=== PATIENT | male | born 1960 | race Caucasian/White ===

== ENCOUNTER 2017-05-23 13:19 | Emergency (ER) | payer MEDICAID ==
[2017-05-23 13:51] VITALS: RESP 16; TEMP 98; O2SAT 99
--- NOTE | 2017-05-23 14:40 | ED PDOC ---
HPI:STROKE - Historian Historian: Patient, Family - Chief Complaint Chief Complaint: Ataxia, other (Dizziness) - Onset Onset: Hours - Timing Timing: Currently Symptomatic, Improved - Context Context: Standing, Walking - Location Locate right:: other (unsteady gait leaning to right side) - Radiation Radiation: None - Severity of pain Pain Scale:: 0 Pain Scale:: 0 - Exacerbated by Exacerbated by:: Walking - Relieved by Relieved by:: Rest - Notes: Notes:: 56 y/o m with PMHx of HTN and tobacco abuse present to ED c/o dizziness since this morning. Patient noticed when he tried to get out of bed that he felt very dizzy. He check his BP at home and was 204/115. Denies CP, palpitations, SOB, headache, acute vision changes, blood in the stools, weakness, vomiting, nausea or difficulty speaking. Patient states he was taking Losartan and another medication he cant recall the name but had to stopped them about 2 days ago because he ran out of meds. Dizziness he reports it as the sensation that he is going to fall but room is not spinning around him. Upon further questioning patient admits having difficulty walking because he is also leaning toward the right side when he tries to walk. <Ernesto Hampton - Last Filed: 05/30/17 14:58> Against Medical Advice - AMA Patient Left Against Medical Advice: The patient declines admission to the hospital and wishes to leave the Emergency Department. This action is against my medical advice. This decision was made with informed refusal. The patient was told that admission to the hospital is necessary. Explanation of the reasons why were discussed. The risks of leaving were explained to the patient and include, but are not limited to, worsening of known or currently unknown conditions, permanent disability and from undiagnosed or untreated conditions. The patient has the capacity to make this informed decision and understands my explanation of the current medical problem and risks of leaving. The patient voluntarily accepts these risks and signed an AMA form documenting our conversation. The patient was given the opportunity to ask questions and reconsider. The patient was encouraged to return to the Emergency Department at any time for further care. <Monica Rice - Last Filed: 06/04/17 14:04> Supervising Attending Note - Supervising Attending Note The Documented history was done by the: Physician Marketing Campaign Analyst, Attending Physician The documented physical exam was done by the: Physician Marketing Campaign Analyst, Attending Physician - Attestation: I have personally seen and examined this patient.: Yes I have fully participated in the care of the patient.: Yes I have reviewed all pertinent clinical information, including history, physical exam and plan: Yes <Monica Rice - Last Filed: 06/04/17 14:04> NIHSS Stroke Scale - Date/Time Evaluation Performed Date Performed: 05/23/17 Time Performed: 14:30 When Was NIHSS Performed: Baseline - How Severe is the Stroke Level of Consciousness: 0=Alert LOC to Questions: 0=Both comments correct LOC to commands: 0=Obeys both correctly Best Gaze: 0=Normal Visual: 0=No visual loss Facial: 0=Normal Motor Arm - Left: 0=No drift Motor Arm - Right: 0=No drift Motor Leg - Left: 0=No drift Motor Leg - Right: 0=No drift Limb Ataxia: 1=Present Upper or Lower (lean to right side when walking) Sensory: 0=Normal Best Language: 0=No aphasia Dysarthia: 0=Normal articulation Extinction & Inattention (Neglect): 0=Normal, no object Score: 1 <Ernesto Hampton - Last Filed: 05/30/17 14:58> - How Severe is the Stroke Severity Of Stroke: 1-4 = Minor Stroke <Monica Rice - Last Filed: 06/04/17 14:04> rTPA Inclusion/Exclusion - Refusal of Treatment Patient Refused Treatment: Yes - Inclusion Criteria for Altepase Patient is 18 years or Older: No The Clinical Diagnosis of Ischemic Stroke That is Causing a Potentially Disabling Neurological Deficit: No Time of Onset is Well Established to be Less Than 270 Minute Before Treatment Would Begin: No Risk/Benefit Discussed With Patient/Family Member Present: No - Exclusion Criteria for Altepase Uncontrolled Hypertension at Time of Treatment (Systolic BP above 185 or Diastolic BP above 110 mmHg): Yes Active Internal Bleeding: No <Ernesto Hampton - Last Filed: 05/30/17 14:58> - Refusal of Treatment Patient Refused Treatment: Yes <Monica Rice - Last Filed: 06/04/17 14:04> Past Medical History Reviewed: Vital Signs Vital Signs: Last Vital Signs Temp 98 F 05/23/17 13:48 Pulse 65 05/23/17 13:48 Resp 16 05/23/17 13:48 BP 158/92 H 05/23/17 13:48 Pulse Ox 99 05/23/17 13:48 - Medical History PMH: HTN - Surgical History Other surgeries: Eye Sx - Family History Family History: States: No Known Family Hx - Living Arrangements Living Arrangements: With Family - Social History Current smoker - smoking cessation education provided: Yes (1 pack/day for last 10 years) <Ernesto Hampton - Last Filed: 05/30/17 14:58> Vital Signs: Last Vital Signs Temp 98 F 05/23/17 13:48 Pulse 84 05/23/17 16:13 Resp 16 05/23/17 16:13 BP 138/74 05/23/17 16:13 Pulse Ox 99 05/30/17 14:58 <Monica Rice - Last Filed: 06/04/17 14:04> - Home Medications Home Medications: Ambulatory Orders Medication Instructions Recorded Losartan/Hydrochlorothiazide 1 tab PO DAILY 05/23/17 [Hyzaar 100-12.5 Tablet] Multivitamin/Iron/Folic Acid 1 tab PO DAILY 05/23/17 [Centrum Complete Multivit Tab] - Allergies Allergies/Adverse Reactions: Allergies Allergy/AdvReac Type Severity Reaction Status Date / Time No Known Allergies Allergy Verified 05/23/17 13:48 Review of Systems ROS Statement: Except As Marked, All Systems Reviewed And Found Negative Neurological: Positive for: Dizziness <Ernesto Hampton - Last Filed: 05/30/17 14:58> Physical Exam - Physical Exam Appears: Positive for: Non-toxic, No Acute Distress Head Exam: Positive for: NORMAL INSPECTION Skin: Positive for: Normal Color Eye Exam: Positive for: EOMI, PERRL, Conjunctival injection Cardiovascular/Chest: Positive for: Regular Rate, Rhythm. Negative for: Edema, Gallop, Murmur Respiratory: Positive for: Normal Breath Sounds Gastrointestinal/Abdominal: Positive for: Normal Exam, Bowel Sounds Extremity: Positive for: Capillary Refill. Negative for: Pedal Edema, Calf Tenderness Neurologic/Psych: Positive for: Alert, Oriented, Gait (Unsteady. Lean to right side), Other (Eleni-Hallpike test negative). Negative for: Motor/Sensory Deficits , Mood/Affect, Cerebellar Tests, Aphasia, Facial Droop <Ernesto Hampton - Last Filed: 05/30/17 14:58> - Laboratory Results Result Diagrams: 05/23/17 15:00 05/23/17 15:00 - ECG O2 Sat by Pulse Oximetry: 99 - Progress ED Course And Treament: Patient head CT does not show sings of acute CVA or masses. EKG discussed above. CXray shows incidental humeral lesion possible osteocondroma (please read full report) and no active cardioresp disease. Patient needed to be admitted to hosp for further testing and obs. At the time of reval patient states symptoms were resolved and he left AMA after discussing with him all the potential risk of leaving the hosp without further testing/treatment Final diagnosis: TIA Patient received 325mg once after CT of the head results <Ernesto Hampton - Last Filed: 05/30/17 14:58> - Laboratory Results Result Diagrams: 05/23/17 15:00 05/23/17 15:00 <Monica Rice - Last Filed: 06/04/17 14:04> Medical Decision Making Medical Decision Makin56 y/o m with PMHx of HTN and Smoking presents for evaluation of sudden onset dizziness and ataxia -Rule out cerebellar stroke vs Uncontrolled HTN VS at ED: BP 158/94 HR [address] without contrast stat CXray Troponin CMP Lipid panel [id number] EKG: Shows HR=58, rest WNL: (My interpretation) Cardiac monitoring <Ernesto Hampton - Last Filed: 05/30/17 14:58> Disposition Counseled Patient/Family Regarding: Need For Followup - Disposition Disposition: Against Medical Advice Disposition Time: 17:45 - POA Present On Arrival: None <Enresto Hampton - Last Filed: 05/30/17 14:58> <Monica Rice - Last Filed: 06/04/17 14:04> - Clinical Impression Clinical Impression: Dizziness, TIA (transient ischemic attack) - Disposition Condition: UNKNOWN Additional Instructions: RETURN TO ER IMMEDIATELY TO FINISH YOUR WORKUP Instructions: Against Medical Advice (ED)
--- NOTE | 2017-05-23 14:56 | RAD ---
HISTORY: dizzy COMPARISON: None available. TECHNIQUE: Chest, one view. FINDINGS: LUNGS: No focal consolidation. Please note that chest x-ray has limited sensitivity for the detection of pulmonary masses. PLEURA: No significant pleural effusion identified. No definite pneumothorax . CARDIOVASCULAR: The cardiomediastinal silhouette appears within normal limits of size. OSSEOUS STRUCTURES: Mildly sclerotic lesion within the proximal right humerus, possibly enchondroma. VISUALIZED UPPER ABDOMEN: Unremarkable. OTHER FINDINGS: None. IMPRESSION: No focal consolidation, significant pleural effusion, or definite pneumothorax identified.
[2017-05-23 15:11] LABS: BASO # 0.1 K/uL (0.0-0.2); BASO % 0.9 % (0.0-2.0); EOS # 0.3 K/uL (0.0-0.7); EOS % 4.1 % (0.0-4.0); HEMATOCRIT 40.4 % (35.0-51.0); LYMPH # 2.6 K/uL (1.0-4.3); LYMPH % 41.8 % (20.0-40.0); MEAN CORPUSCULAR HEMOGLOBIN 30.7 pg (27.0-31.0); MEAN CORPUSCULAR HGB CONC 35.3 g/dL (33.0-37.0); MEAN PLATELET VOLUME 7.6 fl (7.2-11.7); MONO # 0.5 K/uL (0.0-0.8); MONO % 8.1 % (0.0-10.0); NEUT # 2.8 K/uL (1.8-7.0); NEUT % 45.1 % (50.0-75.0); NRBC % 0.1 % (0.0-0.0); RED CELL DISTRIBUTION WIDTH 12.1 % (11.5-14.5)
[2017-05-23 15:12] LABS: WHITE BLOOD COUNT 6.3 K/uL (4.8-10.8)
[2017-05-23 15:24] LABS: ALB/GLOB RATIO 1.4 (1.0-2.1); ALKALINE PHOSPHATASE 59 U/L (38-126); ALT/SGPT 42 U/L (21-72); AST/SGOT 22 U/L (17-59); BILIRUBIN,TOTAL 0.4 mg/dl (0.2-1.3); BLOOD UREA NITROGEN 16 mg/dl (9-20); CALCIUM 9.1 mg/dL (8.4-10.2); CARBON DIOXIDE 22 mmol/L (22-30); CHLORIDE 109 mmol/L (98-107); CHOLESTEROL 162 mg/dL (0-199); GFR AFRICAN-AMERICAN > 60; GLUCOSE,RANDOM 108 mg/dL (75-110); POTASSIUM 3.9 MMOL/L (3.6-5.0); SODIUM 140 mmol/l (132-148); TOTAL PROTEIN 6.7 G/DL (6.3-8.2)
[2017-05-23 15:35] LABS: PARTIAL THROMBOPLASTIN TIME 29.1 Seconds (25.6-37.1)
[2017-05-23 16:14] VITALS: PULSE 84
[2017-05-23 16:15] VITALS: BP 138/74
--- NOTE | 2017-05-23 16:47 | CT ---
PROCEDURE: CT HEAD WITHOUT CONTRAST. HISTORY: new onset gait instability COMPARISON: None available. TECHNIQUE: Axial computed tomography images were obtained through the head/brain without intravenous contrast. Radiation dose: Total exam DLP = 773.74 mGy-cm. This CT exam was performed using one or more of the following dose reduction techniques: Automated exposure control, adjustment of the mA and/or kV according to patient size, and/or use of iterative reconstruction technique. FINDINGS: HEMORRHAGE: No intracranial hemorrhage. BRAIN: No mass effect or edema. The alfaro-white matter differentiation appears intact. Please note that MRI with diffusion imaging is more sensitive in the detection of acute ischemic event. VENTRICLES: No hydrocephalus. CALVARIUM: Unremarkable. PARANASAL SINUSES: Opacification of the ethmoid air cells ; correlate clinically for sinusitis. Partially imaged right maxillary sinus retention polyp/cyst. MASTOID AIR CELLS: Unremarkable as visualized. No inflammatory changes. 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 IMPRESSION: No acute intracranial pathology identified. Opacification of the ethmoid air cells ; correlate clinically for sinusitis. Partially imaged right maxillary sinus retention polyp/cyst.
--- NOTE | 2017-05-23 17:27 | CARD ---
APPROVED REPORT EKG Measurement Heart [id number] <Conclusion> Sinus bradycardia Otherwise normal ECG
== END 2017-05-23 17:42 | disposition left against medical advice (07) ==
LOC: H.ER 13:19 → H.ERHOLD 16:57 → UNDOADMOB 16:57
DX: G45.9 Transient cerebral ischemic attack, unspecified (principal); R42 Dizziness and giddiness